=== PATIENT | male | born 1965 | race Caucasian/White ===

== ENCOUNTER 2018-01-08 14:42 | Outpatient (CLI) | payer OTHER | END 2018-01-08 15:17 | disposition home or self-care (01) | LOC: MRI 14:42 | DX: S83.112A Anterior subluxation of proximal end of tibia, left knee, initial encounter (principal) | CPT/HCPCS: 73721 ==

== ENCOUNTER 2018-06-18 10:50 | Outpatient (CLI) | payer OTHER | END 2018-06-18 10:58 | disposition home or self-care (01) | LOC: RAD 501 10:50 | DX: R07.89 Other chest pain (principal) ==

== ENCOUNTER → 2019-09-21 13:59 | Outpatient (CLI) | payer OTHER | END | disposition home or self-care (01) | LOC: LAB 13:59 | DX: J11.1 Influenza due to unidentified influenza virus with other respiratory manifestations (principal); J20.0 Acute bronchitis due to Mycoplasma pneumoniae ==